=== PATIENT | female | born 1960 | race Caucasian/White ===

== ENCOUNTER 2023-03-16 22:36 | Emergency (ER) | payer OTHER ==
[~2023-03-16] VITALS: Ht 167.6 cm; Wt 96.0 kg
[2023-03-16 22:41] VITALS: TEMP 98.6; O2SAT 97
[2023-03-16] MEDS ORDERED: IBUP-2029 MT (23:35)
[2023-03-16] MEDS ORDERED: T3 PO ×2 (23:35)
[2023-03-16 23:42] VITALS: BP 150/88; PULSE 95; RESP 18
[2023-03-16] MEDS ORDERED: HYDROCODONE/ACETAMINOPHEN 5/325MG TABLET PO ONE (23:45)
[2023-03-16] MEDS ORDERED: TRAM50TA3 MT ×2 (23:48)
[2023-03-17] MEDS ORDERED: TRAM50TA3 MT (01:12)
== END 2023-03-17 01:23 | disposition home or self-care (01) ==
LOC: ER 22:36
DX: S82.892A Other fracture of left lower leg, initial encounter for closed fracture (principal); I10 Essential (primary) hypertension; W18.39XA Other fall on same level, initial encounter; Y93.89 Activity, other specified; Y92.89 Other specified places as the place of occurrence of the external cause; Y99.8 Other external cause status
CPT/HCPCS: 73560; 73600; 29515; 99284; Z7610